=== PATIENT | male | born 1955 | race Native Hawaiian/Other Pacific Islander ===

== ENCOUNTER 2022-01-29 10:35 | Outpatient (CLI) | payer MEDICARE ==
[2022-01-29 12:57] LABS: Chol/HDL Ratio 4.17 %
== END 2022-01-29 10:36 | disposition home or self-care (01) ==
LOC: LABHHL 10:35
PROVIDERS: ATTEND Internal Medicine
DX: E78.5 Hyperlipidemia, unspecified (principal); E11.9 Type 2 diabetes mellitus without complications
CPT/HCPCS: 36415; 80061; 83036